=== PATIENT | female | born 1995 | race Caucasian/White ===

== ENCOUNTER 2018-01-23 01:14 | Emergency (ER) | END 2018-01-23 07:48 | disposition home or self-care (01) ==

== ENCOUNTER 2018-05-22 17:17 | Emergency (ER) | payer MEDICAID ==
[~2018-05-22] VITALS: Ht 157.5 cm; Wt 55.5 kg
[2018-05-22 17:27] VITALS: Ht 157.5 cm; Wt 55.5 kg
[2018-05-22] MEDS ORDERED: KETOROLAC 60 MG INJ IM STA (20:22)
[2018-05-22] MEDS ORDERED: IBUP-1542 PO (22:11)
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
[2018-05-22 22:19] VITALS: BP 108/63; PULSE 70; RESP 19
== END 2018-05-22 22:20 | disposition home or self-care (01) ==
LOC: FTE 17:17
DX: S19.9XXA Unspecified injury of neck, initial encounter (principal); V49.50XA Passenger injured in collision with unspecified motor vehicles in traffic accident, initial encounter
CPT/HCPCS: 72125; 81025; J1885; 96372